=== PATIENT | female | born 1935 | race Caucasian/White ===

== ENCOUNTER 2016-07-01 05:30 | Observation (INO) | payer OTHER ==
[~2016-07-01] VITALS: Ht 157.5 cm; Wt 65.8 kg
[2016-07-01] VITALS (7 sets, daily range): BP systolic 117–165; BP diastolic 60–82
--- NOTE | ~2016-07-01 | H ---
[facility] [place] [address] HISTORY AND PHYSICAL Name: RAJI SIERRA Room #: [facility] [place].[facility].#: [id number] Admission: Attend Phys: Jose Carlos Bran MD Discharge: Date of : 33 Report #: [id number] THIS REPORT FOR: //name// CC: Jose Carlos Mccloud MD PREOPERATIVE DIAGNOSIS: Cholecystitis with cholelithiasis. HISTORY OF PRESENT ILLNESS: The patient is an 80-year-old, who had an attack of abdominal pain 2 weeks ago. The patient was watching TV after dinner and experienced pain underneath her right breast. The pain intensified. It moved around to her back and also to the left abdomen, left upper quadrant. The pain was stabbing in nature. No nausea or vomiting. No diarrhea. She went to the Emergency Room at [facility], and because of a long wait, she left and went to [facility]. She had a blood test and an EKG. No x-ray. She was given pain medication, and around midnight, she was able to go home. Pain had improved. She denies diarrhea. She has had some constipation issues. The patient's maternal grandmother did have bad diseased gallbladder. Her daughter also had diseased gallbladder, had it removed. The patient was seen by Dr. Mccloud, who ordered an ultrasound, and her ultrasound did show a gallstone which was pretty good sized, measuring about 2.6 cm. This was not mobile. No mention of gallbladder wall thickening or bile duct dilatation. Liver function was normal from the Emergency Room a couple of weeks ago. The patient was recommended to be admitted for gallbladder surgery. PAST MEDICAL HISTORY: She has a history of high blood pressure. The patient denies heart disease, denies diabetes, denies lung or liver disease. Denies kidney disease. Denies bleeding disorder. Denies history of blood clot. PAST SURGICAL HISTORY: Tonsillectomy and adenoidectomy as a child, thyroidectomy in 1969 and hysterectomy in 1982. MEDICATIONS: Losartan-HCTZ 50/12.5 daily, levothyroxine 88 mcg every day, Estradiol 0.5 mg every day and Pepcid every day. ALLERGIES: She is allergic to PENICILLIN. Her tongue felt numb with PENICILLIN. FAMILY HISTORY: Thyroid disorder, goiter. Mother had a stroke, at age 79. Father at age 87. No particular illness. SOCIAL HISTORY: The patient is retired. Does not smoke. She drinks about one drink a day. She does have problem with lower back pain. REVIEW OF SYSTEMS: No headache, blurred vision, chest pain, palpitation or shortness of breath. No numbness or weakness. [address] [address] HISTORY AND PHYSICAL Name: RAJI SIERRA Room #: [facility].R.#: [id number] Admission: Attend Phys: Jose Carlos Bran MD Discharge: Date of : 34 Report #: [id number] PHYSICAL EXAMINATION: GENERAL: The patient is an elderly female, in no acute distress. HEENT: Sclerae are nonicteric. Pupils reactive to light. Extraocular muscles are intact. Oropharynx is clear. NECK: Soft and supple, no masses, no JVD. LUNGS: Clear to auscultation. HEART: Regular rate and rhythm. No murmur or gallop. ABDOMEN: Soft and nondistended. She does have localized tenderness in right upper quadrant. No mass, guarding, rigidity or ascites. EXTREMITIES: No cyanosis, clubbing or edema. IMPRESSION AND PLAN: The patient is an 80-year-old who had an attack of abdominal pain a few weeks ago. She went to the Emergency Room. She was found to have gallstone. Her pain is also classic of gallbladder disease. The patient is recommended to have laparoscopic cholecystectomy, treated symptomatically, cholecystitis with cholelithiasis. The patient understands the procedure, the risks involved including bleeding, infection and common bile duct injury. The patient wishes to proceed. By: [id number] Jose Carlos Bran MD /nt
--- NOTE | ~2016-07-01 | O ---
[facility] [place] [address] OPERATIVE REPORT Name: RAJI SIERRA Room #: 428-P [facility] Althea Jaime#: [id number] Admission: 07/01/16 Attend Phys: Jose Carlos Bran MD Discharge: 07/02/16 Date of : 33 Report #: [id number] THIS REPORT FOR: //name// CC: Jose Carlos Mccloud MD DATE OF SERVICE: 07/01/2016 PREOPERATIVE DIAGNOSIS: Cholecystitis with cholelithiasis. POSTOPERATIVE DIAGNOSIS: Severe chronic cholecystitis with cholelithiasis. SURGEON: Jose Carlos Bran M.D. ANESTHESIA: General anesthesia. PROCEDURES PERFORMED: Laparoscopic cholecystectomy with cholangiogram. FINDINGS: The gallbladder is chronically scarred with a lot of adhesions over it. Large stone identified in the gallbladder. Common bile duct is normal on operative cholangiogram. DESCRIPTION OF PROCEDURE: With the patient under general anesthesia, abdomen is prepped and draped in sterile fashion. IV antibiotic was administered. A timeout was performed. A 0.25% Marcaine was used to anesthetize the skin at the trocar site. A 2 cm incision was made infraumbilically. Fascia was identified and grasped with hemostat. Fascia was then opened under visualization. 0 Vicryl sutures were placed on the fascial edges for retraction. Veress needle was then placed through the abdominal cavity. CO2 was placed through the Veress needle without difficulty. After reaching pressure of 15, 11 mm trocar was placed under visualization into the pneumoperitoneum. No harm to the underlying tissue. She does have adhesion, slightly inferior to this 11 mm trocar. This is from her prior hysterectomy surgery. This is omental adhesion only. No bowel identified. Two 5 mm trocars were placed in the right upper quadrant, another 5 mm trocar in the right epigastrium. The patient was placed in a reverse Trendelenburg position, right side tilted up. The gallbladder is scarred, thickened. There was a dense adhesion over the gallbladder. These adhesions were peeled down. The area over the cystic duct and artery was identified and opened up. There was some scarring even down here. Cystic duct was isolated. A clip was placed in the junction of the cystic duct and the gallbladder. During the removal of adhesions from the gallbladder, a large stone was palpated in the gallbladder. An opening was made in the cystic duct. Cholangiogram catheter was inserted. Fluoroscopic cholangiogram was obtained. The catheter did have trouble getting the catheter very, very far in, because of folds of her bowels. However, I was able to put contrast in it. There was some [facility] [address] [place] [address] OPERATIVE REPORT Name: RAJI SIERRA Room #: 428-P [facility] Althea M.RCarlos#: [id number] Admission: 07/01/16 Attend Phys: Jose Carlos Bran MD Discharge: 07/02/16 Date of : 34 Report #: [id number] extravasation at the cannulation site. But contrast did fill the common duct well, and I do not see any filling defect. The bile duct is preserved from harm. Cholangiogram catheter was identified in the cystic duct. The catheter was then removed. The proximal cystic duct was then clipped times 2 and then divided. Cystic artery was then found and then isolated, clipped times 2 proximally and one distally and then divided. Gallbladder was freed from the liver bed. There was scarring in this plane also. Gallbladder was eventually able to be removed. Gallbladder was placed in a specimen bag and retrieved through the infraumbilical port. The abdominal wall had to be opened larger to get this very large stone out. Gallbladder was opened off the field. There was a large blackish, rough kind of stone, and then a small flat stone also present, quite a bit of sludge. I do not see any problem with the gallbladder lining. Gallbladder was sent to pathology. Liver bed was checked. Hemostasis was excellent. Irrigation was performed and irrigation was aspirated out. CO2 was evacuated and trocars were removed. The fascial defect infraumbilically was closed with [id number] 0 Vicryl times 4. Skin was irrigated. Skin was closed with 5-0 PDS. Steri-Strips applied. Band-Aid used for dressing. The patient tolerated the procedure well. By: [id number] Jose Carlos Bran MD /nt
--- NOTE | ~2016-07-01 | S ---
[facility] [place] [address] SURGICAL PATH RPT PROCEDURE Name: RAJI ZHANG Room #: 428-P [facility] Jaime#: [id number] Admission: 07/01/16 Date of : 33 Discharge: 07/02/16 Report #: [id number] Path Case #: [id number] PATHOLOGY REPORT COLLECTION DATE: 07/01/2016 RECEIVED DATE: 07/01/2016 SUBMITTING PHYS: Dr. Jose Carlos Bran OTHER PHYS: Dr. Antoine Mccloud SPECIMEN(S) RECEIVED: A.Gallbladder * * * * * * * * * * * * FINAL DIAGNOSIS: "Gallbladder", cholecystectomy: - Moderate chronic cholecystitis with cholelithiasis. PATHOLOGIST: Marco A Bermeo M.D. REPORT ELECTRONICALLY SIGNED BY: Marco A Bermeo M.D. DATE/TIME: 07/06/2016 15:56 * * * * * * * * * * * * GROSS PATHOLOGY: Received in formalin labeled "Raji Zhang gallbladder," is a 6.1 x 2.8 x 2.5 cm, previously opened gallbladder with pink-lazar serosal surfaces. Opening the gallbladder reveals velvety and light green mucosa and an average wall thickness of 0.1 cm. A single large, granular, dark green calculus is present and no masses are noted grossly. Chainstitch Seat Joiner sections from the body and fundus are submitted along with the proximal margin in cassette A1. (KAH; 07/02/2016) CLINICAL HISTORY: Cholecystitis, cholelithiasis INITIAL CPT CODE(S): A; 35067 Professional services performed by [facility] at [facility] [address] [place] [address] Technical services performed by [facility] at [address] [place] [id number]. [facility] [address] [place] [address] SURGICAL PATH RPT PROCEDURE Name: RAJI ZHANG Room #: 428-P [facility] Jaime#: [id number] Admission: 07/01/16 Date of : 34 Discharge: 07/02/16 Report #: [id number] Path Case #: [id number] [facility] [address] [address] PHONE: [phone] DIRECTOR: Adeel Malloy M.D. * * * END OF REPORT * * *
[~2016-07-01 05:30] MED LIST: ASPIR 8181 MG PO; CALCIUM 500 +1 EAC5 PO; COZAAR 50 MG TA50 M2 PO; FAMOTIDINE40 MG PO; HAIR, SKIN & N1 EAC3 PO; LEVOTHYROXIN0.088 MG PO; MULTIVITAMINS1 EAC7 PO; PROBIOTIC1 EAC1 PO; STOOL SOFTENER100 M1 PO; VITAMIN D-32000 UNIT PO
[2016-07-01 07:33] LABS: HEMATOCRIT 37.6 % (37.0-47.0)
[2016-07-02 03:11] VITALS: BP 153/54
[2016-07-02 07:36] VITALS: BP 155/64
[2016-07-02] MEDS ORDERED: NORCO 5-325 TA1 EACH PO (11:54)
[2016-07-02 12:23] VITALS: BP 155/64
== END 2016-07-02 12:56 | disposition home or self-care (01) ==
LOC: OR 05:30 → TBA 05:30 → OR 10:53 → 4E 10:54 → OR 13:00 → 4E 07-02 12:56
PROVIDERS: Surgery
DX: K80.10 Calculus of gallbladder with chronic cholecystitis without obstruction (principal); I10 Essential (primary) hypertension; I25.10 Atherosclerotic heart disease of native coronary artery without angina pectoris; K21.9 Gastro-esophageal reflux disease without esophagitis; Z87.891 Personal history of nicotine dependence; Z88.0 Allergy status to penicillin; Z90.710 Acquired absence of both cervix and uterus; Z82.3 Family history of stroke; Z84.89 Family history of other specified conditions
CPT/HCPCS: 50010; 50101; 50411; 50555; 50558; 51489; 53307; 53310; 53312; 55245; 55317; 56462; 56525; 56526; 62110; 62900; 70005

== ENCOUNTER 2018-07-22 04:54 | Emergency (ER) | payer OTHER ==
[~2018-07-22] VITALS: Ht 165.1 cm; Wt 61.7 kg
[~2018-07-22 04:54] MED LIST changes: +NORCO 5-325 TA1 EACH PO
[2018-07-22 05:16] LABS: URINE BILIRUBIN NEGATIVE (Negative); URINE BLOOD 3+ (Negative); URINE CLARITY CLOUDY; URINE COLOR YELLOW; URINE GLUCOSE-RANDOM* NEGATIVE (Negative); URINE KETONES TRACE (Negative); URINE PROTEIN (DIPSTICK) 2+ (Negative); URINE UROBILINOGEN 0.2 E.U./dl (0.2-1.0)
[2018-07-22 05:26] LABS: URINE LEUKOCYTES-REFLEX 3+ (Negative); URINE NITRITE-REFLEX POSITIVE (Negative)
[2018-07-22 05:28] LABS: BACTERIA-REFLEX >30 Many /HPF (None Seen); CASTS None Seen /LPF (None Seen); CRYSTALS None Seen /LPF (None Seen); MUCUS None Seen strn/LPF (None Seen); SQUAMOUS None Seen /LPF (0-3); URINE RBC >20 Many /HPF (0-2); URINE WBC-REFLEX >25 Many /HPF (0-5)
[2018-07-22] MEDS ORDERED: PYRIDIUM100 M1 PO (05:38)
[2018-07-22] MEDS ORDERED: KEFLEX500 M1 PO (05:38)
[2018-07-22 06:05] VITALS: BP 174/82
== END 2018-07-22 06:05 | disposition home or self-care (01) ==
LOC: ER 04:54
PROVIDERS: Emergency Medicine
DX: N39.0 Urinary tract infection, site not specified (principal); K21.9 Gastro-esophageal reflux disease without esophagitis; I10 Essential (primary) hypertension; Z90.710 Acquired absence of both cervix and uterus; Z98.890 Other specified postprocedural states; Z88.0 Allergy status to penicillin

== ENCOUNTER 2018-08-18 21:35 | Emergency (ER) | payer OTHER ==
[~2018-08-18] VITALS: Ht 162.6 cm; Wt 63.5 kg
[~2018-08-18 21:35] MED LIST changes: +KEFLEX500 M1 PO; +PYRIDIUM100 M1 PO
[2018-08-18 21:51] LABS: URINE BILIRUBIN NEGATIVE (Negative); URINE BLOOD 2+ (Negative); URINE CLARITY SL CLOUDY; URINE COLOR YELLOW; URINE GLUCOSE-RANDOM* NEGATIVE (Negative); URINE KETONES NEGATIVE (Negative); URINE NITRITE-REFLEX NEGATIVE (Negative); URINE PROTEIN (DIPSTICK) NEGATIVE (Negative); URINE SPECIFIC GRAVITY 1.025 (1.005-1.035); URINE UROBILINOGEN 0.2 E.U./dl (0.2-1.0)
[2018-08-18 21:53] LABS: URINE LEUKOCYTES-REFLEX 2+ (Negative)
[2018-08-18 22:02] LABS: CASTS None Seen /LPF (None Seen); CRYSTALS None Seen /LPF (None Seen); MUCUS None Seen strn/LPF (None Seen); SQUAMOUS None Seen /LPF (0-3); URINE RBC 3-10 Few /HPF (0-2); WBC CLUMPS Occasional (None Seen)
[2018-08-18] MEDS ORDERED: KEFLEX500 M1 PO (22:08)
[2018-08-18 22:45] VITALS: BP 174/78
== END 2018-08-18 22:45 | disposition home or self-care (01) ==
LOC: ER 21:35
PROVIDERS: Emergency Medicine
DX: N39.0 Urinary tract infection, site not specified (principal); K21.9 Gastro-esophageal reflux disease without esophagitis; I10 Essential (primary) hypertension; Z98.890 Other specified postprocedural states; Z90.710 Acquired absence of both cervix and uterus; Z88.0 Allergy status to penicillin; Z90.13 Acquired absence of bilateral breasts and nipples

== ENCOUNTER 2018-10-07 23:42 | Emergency (ER) | payer OTHER ==
[~2018-10-07] VITALS: Ht 165.1 cm; Wt 63.5 kg
[2018-10-08] VITALS: BP 155/64
[2018-10-08 00:10] LABS: URINE BILIRUBIN NEGATIVE (Negative); URINE BLOOD 2+ (Negative); URINE CLARITY SL CLOUDY; URINE COLOR YELLOW; URINE GLUCOSE-RANDOM* NEGATIVE (Negative); URINE KETONES TRACE (Negative); URINE NITRITE-REFLEX NEGATIVE (Negative); URINE PROTEIN (DIPSTICK) TRACE (Negative); URINE SPECIFIC GRAVITY >= 1.030 (1.005-1.035); URINE UROBILINOGEN 0.2 E.U./dl (0.2-1.0)
[2018-10-08 00:11] LABS: URINE LEUKOCYTES-REFLEX 1+ (Negative)
[2018-10-08 00:22] LABS: BACTERIA-REFLEX >30 Many /HPF (None Seen); CASTS None Seen /LPF (None Seen); CRYSTALS None Seen /LPF (None Seen); MUCUS 0-3 Light strn/LPF (None Seen); RENAL EPITHELIAL CELLS 0-3 Few /LPF (None Seen); SQUAMOUS None Seen /LPF (0-3); TRANSITIONAL EPITHEL CELL >10 Many /LPF (None Seen); URINE RBC 3-10 Few /HPF (0-2)
[2018-10-08] MEDS ORDERED: KEFLEX500 M1 PO (00:57)
[2018-10-08] MEDS ORDERED: PYRIDIUM200 MG PO (00:57)
== END 2018-10-08 01:00 | disposition home or self-care (01) ==
LOC: ER 23:42
PROVIDERS: Emergency Medicine
DX: N39.0 Urinary tract infection, site not specified (principal); K21.9 Gastro-esophageal reflux disease without esophagitis; I10 Essential (primary) hypertension; Z90.710 Acquired absence of both cervix and uterus; Z90.89 Acquired absence of other organs; Z98.42 Cataract extraction status, left eye; Z88.0 Allergy status to penicillin

== ENCOUNTER 2018-10-16 04:43 | Emergency (ER) | payer OTHER ==
[~2018-10-16] VITALS: Ht 157.5 cm; Wt 63.5 kg
[~2018-10-16 04:43] MED LIST changes: +PYRIDIUM200 MG PO
[2018-10-16] MEDS ORDERED: OLMESARTAN-HCT1 EAC1 PO (04:51)
[2018-10-16] MEDS ORDERED: NAMENDA 10 MG T10 MG PO (04:52)
[2018-10-16] MEDS ORDERED: DONEPEZIL HCL23 MG PO (04:52)
[2018-10-16] MEDS ORDERED: LEVOTHYROXINE88 MCG PO (04:53)
[2018-10-16 05:12] LABS: URINE BILIRUBIN NEGATIVE (Negative); URINE BLOOD TRACE (Negative); URINE CLARITY CLEAR; URINE COLOR YELLOW; URINE GLUCOSE-RANDOM* NEGATIVE (Negative); URINE KETONES NEGATIVE (Negative); URINE LEUKOCYTES-REFLEX 1+ (Negative); URINE NITRITE-REFLEX NEGATIVE (Negative); URINE PROTEIN (DIPSTICK) NEGATIVE (Negative); URINE SPECIFIC GRAVITY <= 1.005 (1.005-1.035); URINE UROBILINOGEN 0.2 E.U./dl (0.2-1.0)
[2018-10-16 05:19] LABS: BACTERIA-REFLEX None Seen /HPF (None Seen); CASTS None Seen /LPF (None Seen); CRYSTALS None Seen /LPF (None Seen); MUCUS None Seen strn/LPF (None Seen); SQUAMOUS None Seen /LPF (0-3); URINE RBC 0-2 Rare /HPF (0-2); URINE WBC-REFLEX 0-5 Rare /HPF (0-5)
[2018-10-16] MEDS ORDERED: URISPAS100 MG PO (05:31)
[2018-10-16 05:45] VITALS: BP 171/83
== END 2018-10-16 05:45 | disposition home or self-care (01) ==
LOC: ER 04:43
PROVIDERS: Emergency Medicine
DX: R30.0 Dysuria (principal); R35.0 Frequency of micturition; I10 Essential (primary) hypertension; K21.9 Gastro-esophageal reflux disease without esophagitis; Z90.710 Acquired absence of both cervix and uterus; Z90.89 Acquired absence of other organs; Z98.42 Cataract extraction status, left eye; Z88.0 Allergy status to penicillin

== ENCOUNTER → 2019-12-26 | Outpatient (CLI) | payer OTHER ==
[~2019-12-26] MED LIST changes: +DONEPEZIL HCL23 MG PO; +LEVOTHYROXINE88 MCG PO; +NAMENDA 10 MG T10 MG PO; +OLMESARTAN-HCT1 EAC1 PO; +URISPAS100 MG PO
== END ==
LOC: SJCVC 10:25
PROVIDERS: ATTEND Internal Medicine Cardiovascular Disease
DX: I10 Essential (primary) hypertension (principal); E78.00 Pure hypercholesterolemia, unspecified; I77.9 Disorder of arteries and arterioles, unspecified; R41.3 Other amnesia